=== PATIENT | male | born 1960 | race Native Hawaiian/Other Pacific Islander ===

== ENCOUNTER 2022-10-16 08:04 | Emergency (ER) | payer OTHER ==
[~2022-10-16] VITALS: Ht 167.6 cm; Wt 70.3 kg
--- NOTE | 2022-10-16 08:07 | NUR ---
PT becomes upset and started yelling at staff. Dr Beckwith made aware.
[2022-10-16] MEDS: OLANZAPINE 10 MG VIAL IM ONE (08:11)
[2022-10-16] MEDS ORDERED: OLANZAPINE 10 MG VIAL IM ONE (08:13)
[2022-10-16 08:22] LABS: HEMATOCRIT 38.5 % (36.7-47.1); MEAN CORPUSCULAR HEMOGLOBIN 31.5 uug (23.8-33.4); PLATELET COUNT (AUTO) 206 K/uL (152-348)
[2022-10-16 08:38] LABS: CARBON DIOXIDE 30 mmol/L (21-32); CHLORIDE 105 mmol/L (98-107); CREATININE 1.1 mg/dL (0.6-1.3); GLUCOSE 80 mg/dL (74-106); UREA NITROGEN, BLOOD 30 mg/dL (7-18)
[2022-10-16 08:50] LABS: THYROID STIMULATING HORMONE 2.284 mIU/mL (0.358-3.740)
[2022-10-16 08:52] LABS: ALANINE AMINOTRANSFERASE 59 U/L (16-63); ALKALINE PHOSPHATASE 173 U/L (50-136); ASPARTATE AMINOTRANSFERASE 37 U/L (15-37); BILIRUBIN,DIRECT 0.1 mg/dL (0.0-0.2); BILIRUBIN,TOTAL 0.3 mg/dL (0.2-1.0); CREATINE KINASE, TOTAL 45 U/L (39-308); TOTAL PROTEIN, SERUM 7.5 g/dL (6.4-8.2)
[2022-10-16 08:56] LABS: ACETAMINOPHEN < 10.0 ug/mL (10-30)
[2022-10-16 09:08] LABS: ETHANOL < 3 MG/DL (0-0)
--- NOTE | 2022-10-16 09:18 | NUR ---
Pt is calm and cooperative now, Dr more at the bedside for MSE.
--- NOTE | 2022-10-16 10:07 | NUR ---
[facility], pt has subdural hematoma. made aware.
[2022-10-16 10:35] LABS: *BILIRUBIN,URIN NEGATIVE (NEGATIVE); *BLOOD, URINE NEGATIVE (NEGATIVE); *CLARITY,URINE CLEAR (CLEAR); *COLOR,URINE YELLOW (YELLOW); *KETONES,URINE NEGATIVE (NEGATIVE); *UROBILINOGEN,URINE 0.2 E.U./dl (NORMAL); LEUKOCYTE ESTERASE ,URINE NEGATIVE (NEGATIVE); NITRITE, URINE NEGATIVE (NEGATIVE); PH,URINE 5.5 (5.0-8.0); UGLUCOSE NEGATIVE (NEGATIVE)
[2022-10-16 11:11] LABS: *AMPHETAMINE, URINE NEGATIVE (NEGATIVE); *CANNABINOID, URINE NEGATIVE (NEGATIVE); *COCCAINE, URINE NEGATIVE (NEGATIVE); *PHENCYCLIDINE SCREEN,URINE NEGATIVE (NEGATIVE)
--- NOTE | 2022-10-16 11:43 | NUR ---
Called [facility]d transfer back to facility, ETA 20-30 min.
--- NOTE | 2022-10-16 13:00 | NUR ---
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 Pt left ER in stable condition, d/c paperwork given to social media marketer. Pt left ER via gurney, all belongings sent w/ pt.
[2022-10-16 13:04] VITALS: BP 120/66
== END 2022-10-16 13:07 ==
LOC: ER 08:04
DX: F23 Brief psychotic disorder (principal); I62.03 Nontraumatic chronic subdural hemorrhage; F31.9 Bipolar disorder, unspecified; F03.90 Unspecified dementia, unspecified severity, without behavioral disturbance, psychotic disturbance, mood disturbance, and anxiety; F17.210 Nicotine dependence, cigarettes, uncomplicated
CPT/HCPCS: 36415; 70450; 84443; 84484; 85025; 93005; A4663; G0480; J2358